=== PATIENT | female | born 2000 | race Two or more races ===

== ENCOUNTER 2022-03-22 21:56 | Emergency (ER) | payer MEDICAID ==
[~2022-03-22] VITALS: Ht 170.2 cm; Wt 61.4 kg
[2022-03-22 22:00] VITALS: BP 132/77
[2022-03-22 23:00] LABS: Urine Amorphous Crystal FEW /hpf (None Seen); Urine Bacteria NONE SEEN /hpf (None Seen); Urine Blood Negative /uL (Negative); Urine Specific Gravity 1.014 (1.001-1.035); Urine WBC 17 /hpf (0 - 5); Urine WBC Clumps PRESENT /hpf (None Seen)
== END 2022-03-23 05:49 | disposition left against medical advice (07) ==
LOC: ER 21:56
DX: S90.02XA Contusion of left ankle, initial encounter (principal); Z53.21 Procedure and treatment not carried out due to patient leaving prior to being seen by health care provider; V89.2XXA Person injured in unspecified motor-vehicle accident, traffic, initial encounter; Y93.89 Activity, other specified; Y92.89 Other specified places as the place of occurrence of the external cause; Y99.8 Other external cause status
CPT/HCPCS: 81001